=== PATIENT | male | born 1985 | race Caucasian/White ===

== ENCOUNTER 2023-04-18 16:18 | Emergency (ER) | payer MEDICAID, OTHER ==
[~2023-04-18] VITALS: Ht 180.3 cm; Wt 93.0 kg
[2023-04-18 16:31] VITALS: BP 140/8
[2023-04-18] MEDS ORDERED: TETANUS, DIPHTHERIA, PERTUSSIS VAC/PF 0.5ML (>10YR OLD) IM ONE (18:30)
[2023-04-18] MEDS ORDERED: LIDOCAINE HCL/PF 1% 10 MG/ML 5ML VIAL INFIL ONE (18:30)
[2023-04-18] MEDS ORDERED: AMOX1TAB16 PO (18:41)
[2023-04-18] MEDS ORDERED: TOPUD PO (18:41)
== END 2023-04-18 19:16 | disposition home or self-care (01) ==
LOC: ER 16:18
DX: S51.812A Laceration without foreign body of left forearm, initial encounter (principal); M79.602 Pain in left arm; W54.0XXA Bitten by dog, initial encounter; Y93.89 Activity, other specified; Y92.89 Other specified places as the place of occurrence of the external cause; Y99.8 Other external cause status
CPT/HCPCS: 12001; 90471; 90715; 99283; J3490